=== PATIENT | male | born 2000 | race Asian ===

== ENCOUNTER 2019-12-04 13:39 | Emergency (ER) | payer OTHER ==
[2019-12-04] MEDS ORDERED: Acetaminophen TAB* 325 MG PO ONE (14:00)
[2019-12-04] MEDS ORDERED: Ibuprofen TAB* 600 MG PO ONE (14:00)
--- NOTE | 2019-12-04 14:01 | ED ---
Complex/Multi-Sys Presentation - HPI Summary HPI Summary: This pt is a 19 y/[facility] [place] body aches, headache, chest pain since 2 days ago. Pt reports he also has some abd pain. Denies cough, sore throat, vomiting, diarrhea, fever. Denies sick contacts. He has not had any medications for his symptoms today. Pt states the last time he had these symptoms his B12 level was low. Pt did get the flu shot this year. PMHx: B12 deficiency, ulcerative colitis. Pt reports he does not take any medications. He states his UC is under control without medications. Pt reports he has not had his B12 shots in 5 months and has not had B12 oral pills in 3-5 weeks. No PSHx. Pt admits to smoking cigarettes and occasional alcohol use. Denies drug use. 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 Medications reviewed. Allergies noted. - History Of Current Complaint Chief Complaint: EDFluSymptoms Time Seen by Provider: 12/04/19 13:54 Hx Obtained From: Patient Onset/Duration: Lasting Days, Still Present Timing: Days Severity Currently: Mild Location: Pain At: - head, chest, abd Aggravating Factor(s): nothing Alleviating Factor(s): nothing Associated Signs And Symptoms: Positive: Headache, Chest Pain, Abdominal Pain, Other - POSITIVE: chills, body aches.. Negative: Cough, Vomiting, Diarrhea, Fever - Allergies/Home Medications Allergies/Adverse Reactions: Allergies Allergy/AdvReac Type Severity Reaction Status Date / Time No Known Allergies Allergy Verified 12/04/19 14:13 PMH/Surg Hx/FS Hx/Imm Hx Previously Healthy: Yes - B12 deficiency Endocrine/Hematology History: Denies: Hx Diabetes GI History: Reports: Other GI Disorders - Ulcerative colitis - Surgical History Surgical History: None Infectious Disease History: No Infectious Disease History: Denies: Traveled Outside the [place] in Last 30 Days - Family History Known Family History: Positive: Non-Contributory - Social History Occupation: Student - [employer] Alcohol Use: Occasionally Substance Use Type: Reports: None Smoking Status (MU): Current Some Day Smoker Review of Systems Positive: Chills. Negative: Fever Negative: Sore Throat Positive: Chest Pain Negative: Cough Positive: Abdominal Pain. Negative: Vomiting, Diarrhea Positive: Myalgia Positive: Headache All Other Systems Reviewed And Are Negative: Yes Physical Exam - Summary Physical Exam Summary: Constitutional: Well-developed, Well-nourished, Alert. (-) Distressed Skin: Warm, Dry HENT: Normocephalic; Atraumatic Eyes: Conjunctiva normal Neck: Musculoskeletal Full ROM of neck. (-) JVD, (-) Stridor, (-) Tracheal deviation Cardio: Rhythm regular, rate normal, Heart sounds normal; Intact distal pulses; The pedal pulses are 2+ and symmetric. Radial pulses are 2+ and symmetric. (-) Murmur Pulmonary/Chest wall: Effort normal. (-) Respiratory distress, (-) Wheezes, (-) Rales Abd: Soft, (-) tenderness, (-) Distension, (-) Guarding, (-) Rebound Musculoskeletal: (-) Edema Lymph: (-) Cervical adenopathy Neuro: Alert, Oriented x3 Psych: Mood and affect Normal Triage Information Reviewed: Yes Vital Signs On Initial Exam: Initial Vitals Temp Pulse Resp BP Pulse Ox 98.9 F 92 18 140/108 98 12/04/19 13:42 12/04/19 13:42 12/04/19 13:42 12/04/19 13:42 12/04/19 13:42 Vital Signs Reviewed: Yes Procedures - Sedation Patient Received Moderate/Deep Sedation with Procedure: No Diagnostics - Vital Signs Vital Signs Temp Pulse Resp BP Pulse Ox 12/04/19 13:42 98.9 F 92 18 140/108 98 - Laboratory Lab Statement: Any lab studies that have been ordered have been reviewed, and results considered in the medical decision making process. - Radiology Chest XR Radiology Interpretation Completed By: Radiologist Summary of Radiographic Findings: IMPRESSION: No active cardiopulmonary disease is noted. Dr. Martins has reviewed this report. - EKG 13:47 Cardiac Rate: NL - at 94 bpm EKG Rhythm: Sinus Rhythm Summary of EKG Findings: EKG at 1347 shows normal sinus rhythm at a rate of 94 bpm. No STEMI. Re-Evaluation - Re-Evaluation First Eval Re-Evaluation Time: 15:32 Comment: Pt feels better after medicine. Complex Multi-Symp Course/Dx Course Of Treatment: Patient is here symptoms consistent with a viral illness. Patient's overall well-appearing. Patient was given Motrin and Tylenol to improvement in his symptoms. Patient had a negative rapid influenza swab and chest x-ray. Patient is discharged with symptomatic treatment. - Diagnoses Provider Diagnoses: Body aches, Chills, Viral syndrome Discharge ED - Sign-Out/Discharge Documenting (check all that apply): Patient Departure - Discharge home - Discharge Plan Condition: Stable Disposition: HOME Prescriptions: Acetaminophen TAB* [Tylenol TAB*] 650 mg PO Q6H PRN #30 tab PRN Reason: Pain - Moderate Ibuprofen TAB* [Motrin TAB* 600 MG] 600 mg PO Q6H PRN #30 tab PRN Reason: Pain - Severe Patient Education Materials: Viral Syndrome (ED) Referrals: [facility] [Outside] [facility]YSICIAN REFERRAL [Outside] Additional Instructions: Call [facility] Physician Referral to set up someone to give you B12 injections. Continue taking your B12 at home. Take prescribed Motrin and Tylenol for the pain. PLEASE RETURN TO EMERGENCY DEPARTMENT FOR WORSENING SHORTNESS OF BREATH, IF YOU CAN'T BREATHE, OR ANY OTHER CONCERNING SYMPTOMS. - Billing Disposition and Condition Condition: STABLE Disposition: Home - Attestation Statements Document Initiated by Scribe: Yes Documenting Scribe: Scarlett Boyd Provider For Whom Daynaibe is Documenting (Include Credential): Dewayne Martins MD Scribe Attestation: Scarlett Weaver, scribed for Dewayne Martins MD on 12/04/19 at 1719. Scribe Documentation Reviewed: Yes Provider Attestation: The documentation as recorded by the Scarlett kelly accurately reflects the service I personally performed and the decisions made by , Dewayne Martins MD Status of Scribe Document: Viewed
[2019-12-04 15:09] LABS: Influenza A Molecular NEGATIVE (Negative); Influenza B Molecular NEGATIVE (Negative)
[2019-12-04 16:16] VITALS: BP 108/84
== END 2019-12-04 16:14 | disposition home or self-care (01) ==
LOC: ED 13:39
DX: B34.9 Viral infection, unspecified (principal); F17.210 Nicotine dependence, cigarettes, uncomplicated
CPT/HCPCS: 71046; 93005; 99282; A9270-GY